=== PATIENT | male | born 1965 | race Caucasian/White ===

== ENCOUNTER → 2019-04-11 | Outpatient (REF) | payer OTHER | LOC: ZZSENDIN 12:00 | PROVIDERS: ATTEND Urology | DX: N41.1 Chronic prostatitis (principal) | CPT/HCPCS: 88305; 88344 ==

== ENCOUNTER → 2019-04-11 | Outpatient (CLI) | payer OTHER ==
--- NOTE | 2019-04-11 11:25 | RADIOLOGY IMAGING REPORT ---
FACILITY: [facility] PATIENT NAME: Alverto Maya : 1965 MR: [id number] V: [id number] EXAM DATE: ORDERING PHYSICIAN: AMY HURST TECHNOLOGIST: Location: [facility] [place] Patient: Alverto Maya : 1965 Visit/Account:[id number] Date of Sevice: 04/11/2019 TESTICULAR HISTORY: Right scrotal mass swelling COMPARISON: None. FINDINGS: Testes: Right testicle measures 4.8 x 2.1 x 3.6 cm. The left testicle measures 5.1 x 1.9 x 3.2 cm. There are multiple cysts along the lateral aspect of the right testicle ranging in size up to 9.4 mil limeters Symmetric and unremarkable blood flow documented by color and Duplex Doppler ultrasound. Epididymides: The head epididymis on the right measures 3.8 cm and is almost entirely replaced by 3.4 cm cyst . There are several cysts in the head epididymis on the left are just measuring 1.3 cm. T he head epididymis on the left measures 1.7 cm Blood flow is unremarkable in each epididymis by color Doppler ultrasound. Hydrocele: Small bilateral Varicocele: Bilateral IMPRESSION: Bilateral varicoceles Small bilateral hydroceles Epididymal cysts bilaterally, largest on the right measuring 3.4 cm Several cysts identified in the right testicle measuring up to 9.4 mm Report Dictated By: Maddie Nair MD at 04/11/2019 11:16 AM Report E-Signed By: Maddie Nair MD at 04/11/2019 11:21 AM WSN:[email or web address]
== END ==
LOC: US 07:23
PROVIDERS: ATTEND Urology
DX: I86.1 Scrotal varices (principal); N43.3 Hydrocele, unspecified; N50.3 Cyst of epididymis
CPT/HCPCS: 76870